=== PATIENT | male | born 2000 | race Caucasian/White ===

== ENCOUNTER → 2020-04-26 08:16 | Outpatient (CLI) | payer OTHER, SELFPAY ==
[2020-04-17 13:54] VITALS: BMI 29.1
--- NOTE | 2020-04-26 09:05 | ECHOD_ITS ---
Reason For Study: Chest Pain Procedure This was a 2D Doppler, Color Flow transthoracic echocardiogram. Exam performed in department. Left Ventricle Normal LV size. Left ventricular systolic function is normal. The estimated ejection fraction is 60 %. No regional wall motion abnormalities noted. Right Ventricle Normal RV size. Normal systolic function. Atria Normal left atrium. Normal right atrium. Mitral Valve Normal mitral valve. Tricuspid Valve Normal tricuspid valve. Mild (1+) tricuspid valve insufficiency. Pulmonary artery systolic pressure is 28 mmHg. Aortic Valve Normal aortic valve. Trisinus/trileaflet aortic valve. Pulmonic Valve Normal pulmonic valve. Great Vessels Normal aortic root. The pulmonary artery is normal size. Normal inferior vena cava. Pericardium/Pleural No pericardial effusion. MMode/2D Measurements & Calculations LVIDd: 5.4 cm IVSd: 0.95 cm Ao root diam: 2.9 cm LVIDs: 3.2 cm LVPWd: 0.91 cm RVDd: 3.6 cm FS: 39.8 % LAV(MOD-bp): 39.9 ml LVAd ap4: 34.9 cm2 SV(MOD-sp4): 71.7 ml LAV(MOD-bp) Indexed: 18.2 ml/m2 EDV(MOD-sp4): 112.3 ml LAV(MOD-sp2): 38.1 ml EDV(sp4-el): 110.2 ml LAV(MOD-sp4): 41.7 ml LVAs ap4: 19.2 cm2 ESV(MOD-sp4): 40.7 ml ESV(sp4-el): 39.9 ml EF(MOD-sp4): 63.8 % EF(sp4-el): 63.7 % SV(sp4-el): 70.2 ml LA A4 area: 17.2 cm2 LA dimension(2D): 3.3 cm RA A4 area: 17.4 cm2 Doppler Measurements & Calculations MV E max keenan: 78.5 cm/sec Lat Peak E' Keenan: 20.0 cm/sec Med Peak E' Keenan: 11.4 cm/sec MV A max keenan: 50.9 cm/sec E/E' lat: 3.9 E/E' med: 6.9 MV E/A: 1.5 Ao V2 max: 151.8 cm/sec LV V1 max: 154.1 cm/sec PA V2 max: 102.7 cm/sec Ao max P.2 mmHg LV V1 max P.5 mmHg Ao V2 mean: 107.5 cm/sec Ao mean P.0 mmHg Ao V2 VTI: 30.2 cm PI end-d keenan: 95.9 cm/sec TR max keenan: 248.5 cm/sec TR max P.7 mmHg Interpretation Summary Normal LV size. Left ventricular systolic function is normal. The estimated ejection fraction is 60 %. Pulmonary artery systolic pressure is 28 mmHg. Structurally normal valves. Ordering Physician: Shharam Herrera Referring Physician: Brian Gandhi Performed By: Nisha Matson, KERMIT, RVT
--- NOTE | 2020-04-26 12:59 | STRESSREP ---
Stress Test Report Exercise stress test. 20-year-old gentleman with a history of dyspnea on exertion. Resting EKG demonstrates sinus rhythm with a rate of 81 bpm normal intervals are noted resting blood pressure is 154/80 mmHg. Patient exercised according to regular Ray protocol for a total duration of 12 minutes and 36 seconds. The maximum heart rate attained was 203 bpm which was 101% of maximum predicted heart rate the maximum workload was 14.5 metabolic equivalents. At rest there were no ST or T wave changes noted suggest ischemia at peak exercise upsloping ST changes were noted with no meet the criteria for ischemia. There was approximately [address] depression noted in lead aVF. The rest of the leads appeared to be upsloping. In the immediate post exercise. Upsloping ST changes were noted above did not meet the criteria for ischemia no clinical angina was noted. The resting blood pressure was 154/80 with a peak blood pressure 194/82 mmHg. The above is suggestive of resting hypertension in the hypertensive response to exercise. Conclusion: Exercise stress test with no EKG criteria for ischemia at a high workload. Excellent functional capacity noted. Hypertensive response to exercise and resting hypertension noted.
--- NOTE | 2020-04-26 15:13 | PFTCOMP ---
COMPLETE PULMONARY FUNCTION TEST INTERPRETATION Brief HPI: Patient is a 20 year old male, currently under the care of Dr. Gandhi, who presents to [facility] for complete pulmonary function tests secondary to diagnosis of dyspnea. Respiratory therapist reports good effort and reproducible results. Interpretation: Forced expiration spirometry shows no large airways obstructive ventilatory defect with an FEV1 of 121% predicted. There is no significant bronchodilator response by strict ATS criteria. Spirograms are of good quality and plateau normally. The respiratory flow volume loop shows a normal pattern. Lung volumes by body plethysmography show a normal total lung capacity at 8.13 L, 102% predicted. All other lung volumes are within normal limits. Diffusion capacity by carbon monoxide is normal at 113% predicted. The airway resistance is normal. No previous pulmonary function tests were available for review. Impression: Grossly normal pulmonary function test with some stigmata of possible small airways disease. Could consider bronchoprovocation study if asthma is a consideration.
== END ==
PROVIDERS: PCP Family Medicine; Referring Provider Family Medicine; Visit Provider Family Medicine
DX: R07.9 Chest pain, unspecified (principal); R06.02 Shortness of breath; R06.00 Dyspnea, unspecified
CPT/HCPCS: 93017; 93306; 94060; 94726; 94729

== ENCOUNTER → 2020-06-06 16:03 | Outpatient (CLI) | payer OTHER, SELFPAY ==
[2020-06-06 15:28] VITALS: BMI 30.4
[2020-06-07 07:26] LABS: SARS-COV-2 TOTAL ABS Nonreactive (Nonreactive)
[2020-10-10 11:27] LABS: Aldosterone, Serum 1.9 ng/dL (0.0-30.0); Renin, Plasma 1.788 ng/mL/hr (0.167-5.380)
== END ==
PROVIDERS: PCP Family Medicine; Referring Provider Nurse Practitioner Family; Visit Provider Nurse Practitioner Family
DX: I10 Essential (primary) hypertension (principal); Z20.828 Contact with and (suspected) exposure to other viral communicable diseases
CPT/HCPCS: 36415; 82088; 84244; 86769

== ENCOUNTER 2021-04-20 11:11 | Emergency (ER) | payer OTHER, SELFPAY ==
[2021-04-20 11:12] VITALS: BP 153/81; PULSE 70; RESP 16; TEMP 36.4; O2SAT 98; BMI 27.7
--- NOTE | 2021-04-20 11:28 | RAD_ITS ---
STUDY: X-RAY CHEST REASON FOR EXAM: Male, 21 years old. right lower chest pain. No trauma. TECHNIQUE: Single AP portable view of the chest. COMPARISON: None. FINDINGS: The lungs are clear and expanded. There is no demonstrated pleural abnormality. Normal size heart. Normal mediastinum and griselda. Normal visualized pulmonary arteries. Normal visualized aortic arch and descending thoracic aorta. Normal visualized thoracic spine. Normal visualized ribs, clavicles, and shoulders. There is no demonstrated abnormality of the visualized soft tissue structures of the upper abdomen. RAD/Chest 1 View (Portable) IMPRESSION: Normal x-ray examination of the chest. Electronically Signed: Tyrel Walsh MD at 12:19 EDT Tel , Service support ,
--- NOTE | 2021-04-20 11:30 | ED.VIS.GI ---
HPI HPI - GI History of Present Illness Chief Complaint: Other, Pain/Inj Detail of Chief Complaint: Right upper quadrant abdominal pain. Informant: patient Abdominal Pain/Flank Pain Onset: Weeks Context: Gradual Onset Timing: Continuous Quality: Aching Location: RUQ Current Severity: Mild Maximum Severity: Mild Worsened by: Nothing Relieved by: Nothing Nausea/Vomiting/Emesis GI Symptom: Positive for Nausea; Negative for Vomiting Onset: Days Quality: Negative for Nonbilious, Blood streaks, Coffee ground and Hematemesis Severity: Mild Diarrhea/Melena/Hematochezia GI Symptom: Negative for Diarrhea, Melena and Hematochezia Associated Symptoms Associated Symptoms: Negative for Dysuria, Frequency and Hematuria Narrative Narrative: Male history of hypertension. States last 1 to 2 weeks he had right upper quadrant abdominal pain associated with nausea. No vomiting or diarrhea. No melena. Slightly decreased appetite. No prior history. No trauma. No shortness of breath. Said it feels like it is under his right lower rib cage. Not the rib cage itself. He denies any dysuria. Prior similar symptoms: No Recent Illness/Hospitalization: No PFSH [facility] Medical History Anxiety and depression Chest pain on exertion Dizziness Dyspnea on exertion Hypertension Home Medications amlodipine 10 mg tablet 10 mg PO DAILY #90 tab 08/16/20 [Rx Last Taken Unknown] Allergy/AdvReac Type Severity Reaction Status Date / Time No Known Allergies Allergy Verified 04/20/21 11:16 Social History Smoking Status: Never smoker ROS ROS ED ROS Narrative Right upper quadrant abdominal pain. Nausea. Review of Systems ROS Unobtainable: Denies due to encephalopathy Constitutional Constitutional ED: Denies chills or fever(s) ENT ENT ED: Denies ear pain or sore throat Cardiovascular Cardiovascular: Denies chest pain Respiratory/Chest Respiratory/Chest: Denies cough or dyspnea Gastrointestinal Gastrointestinal: Reports abdominal pain and nausea; Denies constipation, diarrhea, melena or vomiting Genitourinary Genitourinary ED: Denies dysuria or hematuria Musculoskeletal Musculoskeletal: Denies myalgias Integumentary Denies rash Neurologic Neurologic: Denies headache(s) Psychiatric Psychiatric: Denies depression Endocrine Endocrinology: Denies polyuria Hematologic/Lymphatic Hematologic/Lymphatic: Denies easy bruising Allergic/Immunologic Allergic/Immunologic ED: Denies urticaria EXAM Physical Exam Narrative Exam Narrative: Young male no acute distress vital signs stable afebrile. HEENT, neck, heart and lung exam normal. Chest wall completely nontender. Abdomen soft right upper quadrant tenderness. No rebound, guarding rigidity. No Purcell sign. Right lower quadrant and left side unremarkable. Nondistended normal bowel sounds. Patient moving all 4 extremities. No edema. Calves nontender. Back nontender. Neurologically is awake and alert with no focal motor deficits. Const Vital Signs: 04/20/21 11:12 04/20/21 11:41 Temperature 97.5 F L Temperature Source Temporal Pulse Rate 70 Respiratory Rate 16 Respiratory Effort Normal Non-Labored Blood Pressure 153/81 H Blood Pressure Mean 105 Pulse Ox 98 Oxygen Delivery Method Room Air Positive well nourished and well developed; Negative for obese, cachectic, contractures or unkempt General Appearance ED: well developed and NAD; Negative for unkempt, cachectic or contractures Nutritional Appearance: Negative for cachectic or obese HEENT Reports moist mucous membranes normocephalic and atraumatic Eyes PERRL and EOMs intact bilaterally Neck no lymphadenopathy, supple and no JVD General: Negative for tenderness Resp normal respiratory effort and clear to auscultation bilaterally Auscultation: Negative for rales, rhonchi or wheezes Cardio regular rate, regular rhythm, S1 normal heart sound, S2 normal heart sound and no murmurs GI non-distended and no masses; Negative for non-tender Inspection: Negative for abdominal distention Auscultation: normoactive bowel sounds; Negative for hyperactive bowel sounds or hypoactive bowel sounds Palpation: soft and tender; Negative for guarding, rigid, hepatomegaly, splenomegaly, hernia, mass, pulsatile mass or rebound tenderness present Back/Spine no CVA tenderness Extremity full ROM General Extremety ED: Negative for edema or tenderness General Extremity: Negative for edema Neuro CN's II-XII intact bilaterally and moves all extremities Sensorium / Orientation: alert, oriented to person, oriented to place and oriented to time; Negative for confused or lethargic Motor Exam: strength 5/5 throughout Psych mental status grossly normal Appearance: Negative for unkempt Skin Lesions: no lesions Rashes: no rashes MDM MDM MDM Narrative Medical decision making narrative: 21-year-old male with right upper quadrant abdominal pain. Associated nausea. Labs are being obtained. Along with a chest x-ray. Repeat exam at 1:15 PM patient is doing well. Abdomen is benign. Right upper quadrant is benign. He and I discussed all his test results. He is in a follow-up with the wellness center at the [facility]. Lab Data Attestation: I reviewed the patient's lab results. Lab results narrative: CBC normal white count of 4. Hemoglobin of 15. Electrolytes unremarkable gap 7 normal creatinine. Normal liver enzymes. Total bilirubin slightly elevated 1.3 alk phos of 123. UA negative. Labs: Laboratory Results - last 24 hr 04/20/21 04/20/21 04/20/21 11:39 11:39 11:44 WBC 4.4 RBC 5.03 Hgb 15.6 Hct 43.7 MCV 86.9 MCH 31.0 MCHC 35.7 RDW Std Deviation 38.1 RDW Coeff of Del 12.1 Plt Count 222 MPV 10.0 Immature Gran % (Auto) 0.000 Neut % (Auto) 51.8 Lymph % (Auto) 35.8 Billings % (Auto) 7.4 Eos % (Auto) 4.1 Baso % (Auto) 0.9 Absolute Neuts (auto) 2.3 Absolute Lymphs (auto) 1.59 Nucleated RBC % 0 Sodium 139 Potassium 3.9 Chloride 107 Carbon Dioxide 25.0 Anion Gap 7 BUN 13 Creatinine 0.98 Estim Creat Clear Calc 134.75 Est GFR (MDRD) Af Amer 124 Est GFR (MDRD) Non-Af 103 BUN/Creatinine Ratio 13.3 Glucose 95 Calcium 9.5 Total Bilirubin 1.30 H AST 21 ALT 30 Alkaline Phosphatase 123 H Total Protein 7.8 Albumin 4.6 Globulin 3.2 Albumin/Globulin Ratio 1.4 Lipase 81 Urine Color Yellow Urine Clarity Clear Urine pH 6.5 Ur Specific [place] 1.010 Urine Protein Negative Urine Glucose (UA) Normal Urine Ketones Negative Urine Occult Blood Negative Urine Nitrite Negative Urine Bilirubin Negative Urine Urobilinogen Normal Ur Leukocyte Esterase Negative Urine RBC 0 SEEN Urine WBC 0 SEEN Ur Squamous Epith Cells 0 SEEN Urine Bacteria 0 SEEN Urine Mucus 0 SEEN Radiography Diagnostic Testing: Radiology Impression Chest X-Ray 04/20/21 11:28 IMPRESSION: Normal x-ray examination of the chest. Electronically Signed: Tyrel Walsh MD at 12:19 EDT Tel , Service support , Portable chest x-ray single view interpreted by myself and the radiologist. Shows normal cardiac silhouette and lung de leon. No obvious bony abnormalities. Discharge Plan Triage Chief Complaint: Other, Pain/Inj ED Provider: Wali Melara Dx/Rx/DC Orders Clinical Impression: Abdominal pain of unknown cause Instructions: ED Abd Pain Unknown ... Prescriptions: No Action amlodipine 10 mg tablet 10 mg PO DAILY Qty: 90 RF: 3 Primary Care Provider: Brian Gandhi Referrals: Brian Gandhi MD [Primary Care Provider] - 1 Week if not improving Activity Restrictions/Additional Instructions: All your tests and chest x-ray were unremarkable today. Follow-up with your primary care physician or the wellness center at the [facility] if not improving. If not improving the next test I would strongly recommend would be in ultrasound of your gallbladder. Increasing pain, fever or intractable vomiting return. Disposition Disposition: Home, Self Care
[2021-04-20 11:43] LABS: Absolute Lymphocyte Count 1.59 X10^3/uL (0.83-4.51); Absolute Neutrophil Count 2.3 X10^3/uL (2.0-7.7); Basophil# 0.04 X10^3/uL; Basophil% 0.9 % (0-1); Eosinophil# 0.18 X10^3/uL; Eosinophils% 4.1 % (0-5); Hematocrit 43.7 % (40-54); Hemoglobin 15.6 g/dL (13.0-16.5); Lymphocyte # 1.59 X10^3/ul (0.83-4.51); Lymphocyte % 35.8 % (19-41); Mean Corp Hgb Conc 35.7 g/dL (32-36); Mean Corpuscular Volume 86.9 fL (80-94); Monocyte# 0.33 X10^3/uL; Monocyte% 7.4 % (0-10); NRBC Flagged by Analyzer 0 % (0-5); Neutrophil % 51.8 % (47-70); Platelet Count 222 K/mm3 (150-450); RBC Distribution Width CV 12.1 % (11.6-14.6); RBC Distribution Width SD 38.1 fl (35.1-43.9); Red Blood Count 5.03 M/mm3 (4.6-6.2); White Blood Count 4.4 K/mm3 (4.4-11.0)
[2021-04-20 11:50] LABS: Bacteria 0 SEEN /hpf (None Seen); Color, Urine Yellow (Yellow); Glucose, Dipstick Normal (Normal); Ketone-Dipstick Negative (Negative); Leukocyte Esterase-Dipstick Negative /ul (Negative); Mucous, Urine 0 SEEN /hpf (<or=2+); Nitrite-Dipstick Negative (Negative); Occult Blood-Urine Negative /ul (Negative); Protein-Dipstick Negative (Negative); Red Blood Cells-Urine 0 SEEN /hpf (0-5); Squamous Epithelial Cells - UA 0 SEEN /hpf (0-5); Urine Bilirubin Dipstick Negative (Negative); Urine Clarity Clear (Clear); Urine Urobilinogen Normal (Normal); Urine pH 6.5 (5.0 - 8.0); White Blood Cells 0 SEEN /hpf (0-5)
[2021-04-20 12:00] LABS: ALB/GLOB Ratio 1.4 RATIO (0.9-2.4); AST(SGOT) 21 U/L (15-37); Alanine Aminotransfer ALT/SGPT 30 U/L (16-61); Albumin, Serum 4.6 g/dL (3.2-5.0); Alkaline Phosphatase 123 U/L (45-117); Anion Gap 7 (5-15); BUN 13 mg/dL (7-18); BUN/Creat Ratio 13.3 RATIO (10-20); Calcium,Total 9.5 mg/dL (8.5-10.1); Chloride 107 mmol/L (98-107); Creatinine, Serum 0.98 mg/dL (0.70-1.30); EST Glomerular Filtration Rate 103 mL/min (>60); Est Glom Filt Rate - Afr Amer 124 mL/min (>60); Estimated Creatinine Clearance 134.75 ml/min; Globulin 3.2 g/dL (2.2-4.2); Glucose 95 mg/dL (74-106); Lipase 81 U/L (73-393); Potassium 3.9 mmol/L (3.5-5.1); Protein, Total 7.8 g/dL (6.4-8.2); Sodium Level 139 mmol/L (136-145)
== END 2021-04-20 13:29 | disposition home or self-care (01) ==
PROVIDERS: Emergency Provider Emergency Medicine; PCP Family Medicine
DX: R10.11 Right upper quadrant pain (principal)
CPT/HCPCS: 71045; 80053; 81001; 83690; 85025; 99283; A4216

== ENCOUNTER → 2021-04-29 10:19 | Outpatient (CLI) | payer OTHER, SELFPAY ==
--- NOTE | 2021-04-29 10:25 | US_ITS ---
STUDY: ABDOMINAL ULTRASOUND - RIGHT UPPER QUADRANT REASON FOR VISIT: Male, 21 years old. ABDOMEN PAIN RUQ PAIN TECHNIQUE: Ultrasound evaluation of the right upper quadrant was performed with real-time and static -scale imaging. TECHNICAL QUALITY: Adequate. COMPARISON: None. FINDINGS: Liver: There is normal echogenicity of the liver. The bile ducts are within normal limits. There is hepatic color flow. The direction of portal flow is hepatopetal. There is no demonstrated mass lesion. Gallbladder: Normal distended gallbladder. The gallbladder wall measures 3 mm. There is a negative sonographic Purcell''s sign. There is no pericholecystic fluid. There are no gallstones. Common Bile Duct (C.B.D.): The common bile duct measures ( in mm): 3 Pancreas: Normal size of the head, body of the pancreas. There is normal echogenicity of the pancreas. There is no demonstrated pancreatic mass or cyst. Right Kidney: Normal size of the right kidney. The right kidney measures 10.7 cm. . Normal renal cortex. There is no demonstrated renal mass or cyst. There is no right hydronephrosis. Aorta: It is not visualized. There is too much overlying bowel gas. . US/Abdomen Limited IMPRESSION: No acute findings. 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 (i.e. Measuring a kidney on an US does not correlate with an exact same measurement on a CT.) Electronically Signed: Kar Love MD at 15:22 EDT , Service support ,
== END ==
PROVIDERS: PCP Family Medicine; Referring Provider Family Medicine; Visit Provider Family Medicine
DX: R10.9 Unspecified abdominal pain (principal); R11.0 Nausea
CPT/HCPCS: 76705

== ENCOUNTER → 2021-05-13 07:50 | Outpatient (CLI) | payer OTHER, SELFPAY ==
--- NOTE | 2021-05-13 07:54 | CT_ITS ---
STUDY: CTA ABDOMEN AND PELVIS WITH CONTRAST REASON FOR EXAM: Male, 21 years old. HTN RADIATION DOSAGE (If Supplied By Facility): CTDIvol = ( 22.98 ) mGy, DLP = ( 908.76 ) mGycm TECHNIQUE: Transaxial images were obtained from the dome of the diaphragm to the symphysis pubis without oral contrast. IV 100mL Isovue-370 was administered. Sagittal and coronal images were reconstructed. Individualized dose optimization techniques were used for this CT. COMPARISON: None. FINDINGS: The visualized lung bases are unremarkable. The visualized portions of the heart are within normal limits. Normal liver. Normal gallbladder and extrahepatic biliary system. Normal spleen. Normal pancreas. Normal bilateral adrenal glands. Normal right kidney. Normal left kidney. Renal arteries are normal. There is a small hiatal hernia. Normal small intestine. Normal colon. The appendix is visualized and appears normal. Normal abdominal aorta. Normal inferior vena cava. Normal retroperitoneum. Normal urinary bladder. Normal abdominal wall. Loss of the normal lumbar lordosis. CT/CT ANGIO ABD&PEL W/O&W/DYE IMPRESSION: Normal enhanced CT of the abdomen and pelvis. Electronically Signed: Francisco Javier Lucero MD at 9:17 EDT , Service support ,
== END ==
PROVIDERS: PCP Family Medicine; Referring Provider Physician Assistant Medical; Visit Provider Physician Assistant Medical
DX: I10 Essential (primary) hypertension (principal)
CPT/HCPCS: 74174; Q9967; A4216

== ENCOUNTER → 2021-07-03 08:00 | Outpatient (CLI) | payer OTHER, SELFPAY | PROVIDERS: PCP Family Medicine; Referring Provider Family Medicine; Visit Provider Family Medicine | DX: Z23 Encounter for immunization (principal) ==

== ENCOUNTER 2021-11-19 10:12 | Emergency (ER) | payer OTHER, SELFPAY ==
[2021-11-19 10:13] VITALS: BP 171/83; PULSE 84; RESP 14; TEMP 36.2; O2SAT 96; BMI 26.4
--- NOTE | 2021-11-19 10:39 | EDS_ITS ---
HPI HPI - GI History of Present Illness Chief Complaint: GI Bleed Informant: patient Narrative Narrative: Patient presents with 1 episode of blood with a bowel movement. He states he went to the bathroom this morning. He felt normally. He had a bowel movement that was a little larger than normal. He had some mild stinging sensation with this. When he looked at the toilet he had blood in the water. He states the stool is normal color brown. It was not black. There is no blood that he could see in the stool. He states it was a little bit larger than normal. He still has a small amount of stinging at the rectum but does not have continued bleeding. He does not have lightheadedness. He has not had weight loss or fevers. He has no abdominal pain. He has no personal family history of ulcerative colitis or Crohn's disease. He states occasionally he gets a little bit of blood on the tissue with wiping but this was more than that. He has never had abdominal surgery. He has no bleeding from any other areas. He is on amlodipine for blood pressure but no anticoagulation. He has not yet taken his amlodipine today. [facility] Medical History Anxiety and depression Chest pain on exertion Dizziness Dyspnea on exertion Hypertension Home Medications amlodipine 10 mg tablet 10 mg PO DAILY #90 tab 08/04/21 [Rx Last Taken Unknown] Allergy/AdvReac Type Severity Reaction Status Date / Time No Known Allergies Allergy Verified 11/19/21 10:14 Social History Smoking Status: Never smoker [facility] ED Constitutional Constitutional ED: Denies chills or fever(s) Cardiovascular Cardiovascular: Denies chest pain Respiratory/Chest Respiratory/Chest: Denies cough or dyspnea Gastrointestinal Gastrointestinal: Denies abdominal pain, diarrhea, melena, nausea or vomiting Genitourinary Genitourinary ED: Denies hematuria Musculoskeletal Musculoskeletal: Denies myalgias Integumentary Denies rash Neurologic Neurologic: Denies headache(s) Endocrine Endocrinology: Denies polydipsia or polyuria Hematologic/Lymphatic Hematologic/Lymphatic: Denies easy bleeding or easy bruising Allergic/Immunologic Allergic/Immunologic ED: Denies urticaria EXAM Physical Exam Const Vital Signs: 11/19/21 10:13 Temperature 97.1 F L Temperature Source Temporal Pulse Rate 84 Respiratory Rate 14 Blood Pressure 171/83 H Blood Pressure Mean 112 Pulse Ox 96 Oxygen Delivery Method Room Air Positive well nourished General Appearance ED: Negative for pallor HEENT normocephalic Eyes PERRL General Eye ED: Negative for pale conjunctiva or scleral icterus Neck no lymphadenopathy and supple Resp normal respiratory effort and clear to auscultation bilaterally Cardio regular rate and regular rhythm GI non-tender, non-distended and no masses Auscultation: normoactive bowel sounds Palpation: soft Narrative: There is aRectal exam shows no hemorrhoids. I do not feel any mass. A fissure. It is slightly inflamed. It is not actively bleeding though. No sign of infection or abscess. Back/Spine no CVA tenderness Extremity General Extremety ED: Negative for tenderness Neuro Sensorium / Orientation: alert Psych mental status grossly normal Skin Skin Narrative: No pallor. He has normal color of his lips, conjunctivo-, nailbeds and palm. General Skin Exam: Negative for pallor Rashes: no rashes MDM MDM MDM Narrative Medical decision making narrative: Patient's history and exam is most consistent with a rectal fissure that bled. He had a larger and harder stool than average. He had a stinging sensation. He had red blood in the water but no blood in the stool. No melena. No abdominal pain. He has no weight loss fevers or history of cancer. No history of Crohn's or ulcerative colitis. He has a fissure on exam. He will use stool softener and increase hydration. I will give him a number of gastroenterology for follow-up. I explained that it is very rare to have rectal cancer in a young male but it is certainly possible. But his presentation is not typical for that. Discharge Plan Triage Chief Complaint: GI Bleed ED Provider: Tavon Cook Dx/Rx/DC Orders Clinical Impression: Rectal fissure, Rectal bleeding Instructions: ED Understanding Anal Fissures Prescriptions: No Action amlodipine 10 mg tablet 10 mg PO DAILY Qty: 90 RF: 3 Primary Care Provider: Brian Gandhi Referrals: Brian Gandhi MD [Primary Care Provider] - 3-5 Days Cathy,DO Bruno [STAFF PHYSICIAN] - 10-14 Days if not better Disposition Disposition: Home, Self Care
== END 2021-11-19 11:28 | disposition home or self-care (01) ==
LOC: ED 11:15
PROVIDERS: Emergency Provider Emergency Medicine; PCP Pediatrics; Visit Provider Emergency Medicine
DX: K60.2 Anal fissure, unspecified (principal); K62.5 Hemorrhage of anus and rectum; I10 Essential (primary) hypertension; Z79.899 Other long term (current) drug therapy
CPT/HCPCS: 99282